=== PATIENT | female | born 1950 | race African-American/Black ===

== ENCOUNTER 2024-06-28 09:28 | Outpatient (CLI) | payer BC | END 2024-06-28 09:29 | disposition home or self-care (01) | LOC: SCSMRI 09:28 | PROVIDERS: ATTEND Psychiatry & Neurology Neurology | DX: R56.9 Unspecified convulsions (principal); G93.89 Other specified disorders of brain; R90.82 White matter disease, unspecified | CPT/HCPCS: 70551 ==

== ENCOUNTER 2024-07-20 16:26 | Inpatient (IN) | payer BC ==
[2024-07-20 17:03] VITALS: BMI 30.4
[2024-07-20] MEDS ORDERED: Acetaminophen 325 MG TAB PO PRN ×2 (17:30→19:00)
[2024-07-20] MEDS ORDERED: Ondansetron ODT 4 MG TAB SL PRN (17:30)
[2024-07-20] MEDS ORDERED: Ondansetron PF 4 MG/2 ML Vial IVP PRN (17:30)
[2024-07-20] MEDS ORDERED: Dextrose 50% Abboject 50 ML SYRINGE SLOW IVP PRN (19:00)
[2024-07-20] MEDS ORDERED: Dextrose 5% in Water 1,000 ML IV PRN (19:00)
[2024-07-20] MEDS ORDERED: Glucagon 1 MG/ML KIT IM PRN (19:00)
[2024-07-20] MEDS ORDERED: Ondansetron ODT 4 MG TAB PO PRN (19:00)
[2024-07-20] MEDS: metFORMIN 500 MG TAB PO SCH (20:37)
[2024-07-20] MEDS: Ramipril 5 MG CAP PO SCH (20:37)
[2024-07-20] MEDS: levETIRAcetam 500 MG TAB PO SCH (20:38)
[2024-07-20] MEDS: Atorvastatin Calcium 40 MG TAB PO SCH (20:38)
[2024-07-20] MEDS: Dexamethasone 4 mg/ml Vial SLOW IVP SCH (20:38)
[2024-07-20] MEDS: levETIRAcetam 500 MG TAB ONE (21:29)
[2024-07-21 04:52] LABS: Anion Gap 21 mmol/L (10-20); BUN (Urea Nitrogen) 13 mg/dL (9.8-20.1); Calc. Creatinine Clearance 82 mL/min (70-130); Calcium 9.6 mg/dL (7.8-10.44); Carbon Dioxide 19 mmol/L (23-31); Chloride 102 mmol/L (98-107); Estimated GFR 79; Glucose 179 mg/dL (83-110); Potassium 4.3 mmol/L (3.5-5.1); Sodium 138 mmol/L (136-145)
[2024-07-21 04:54] LABS: #Basophils Less than 0.03 10x3/uL (0.0-0.2); #Eosinophils Less than 0.03 10x3/uL (0.0-0.7); %Lymphocytes 7.8 % (21.0-51.0); %Monocytes 1.6 % (0.0-10.0); %Neutrophils 90.4 % (42.0-75.0); Hematocrit 38.3 % (36.0-47.0); Hemoglobin 12.9 g/dL (12.0-16.0); Mean Corpuscular HGB CONC 33.7 g/dL (32.0-36.0); Mean Corpuscular Hemoglobin 24.4 pg (27.0-31.0); Mean Corpuscular Volume 72.4 fL (78.0-98.0); Mean Platelet Volume 10.3 fL (7.4-10.4); Platelet Count 463 10x3/uL (130-400); RBC Distribution Width 13.8 % (11.5-14.5); Red Blood Cell (RBC) Count 5.29 mill/uL (4.20-5.40)
[2024-07-21] MEDS: Insulin Lispro 100 UNIT/ML 10 ML VIAL SC PRN (05:57)
[2024-07-21 07:05] LABS: Anisocytosis SLIGHT = 6-15 cells HPF (0-5); Microcytosis SLIGHT = 6-15 cells HPF (0-5); Platelet Adequacy Comment Platelets Normal
[2024-07-21] MEDS: Dexamethasone 4 mg/ml Vial SLOW IVP SCH (09:38)
[2024-07-21] MEDS: Pantoprazole 40 MG VIAL IVP SCH (09:38)
[2024-07-21] MEDS: Tamoxifen 10 MG TAB PO SCH (09:39)
[2024-07-21] MEDS: Indapamide 1.25 MG TAB PO SCH (10:17)
[2024-07-21] MEDS: INDAPAMIDE PO SCH (10:24)
[2024-07-22 05:14] LABS: Hematocrit 35.7 % (36.0-47.0); Hemoglobin 12.1 g/dL (12.0-16.0); Mean Corpuscular HGB CONC 33.9 g/dL (32.0-36.0); Mean Corpuscular Hemoglobin 24.2 pg (27.0-31.0); Mean Corpuscular Volume 71.3 fL (78.0-98.0); Mean Platelet Volume 9.8 fL (7.4-10.4); Platelet Count 494 10x3/uL (130-400); RBC Distribution Width 13.8 % (11.5-14.5); Red Blood Cell (RBC) Count 5.01 mill/uL (4.20-5.40)
[2024-07-22 05:42] LABS: Anion Gap 14 mmol/L (10-20); BUN (Urea Nitrogen) 22 mg/dL (9.8-20.1); Calc. Creatinine Clearance 79 mL/min (70-130); Calcium 8.7 mg/dL (7.8-10.44); Carbon Dioxide 24 mmol/L (23-31); Chloride 100 mmol/L (98-107); Estimated GFR 76; Glucose 225 mg/dL (83-110); Sodium 134 mmol/L (136-145)
[2024-07-22] MEDS: Insulin Lispro 100 UNIT/ML 10 ML VIAL SC PRN ×2 (12:34→20:23)
[2024-07-23] MEDS: Pantoprazole DR 40 MG TAB PO SCH (08:48)
[2024-07-23] MEDS: Dexamethasone 4 mg/ml Vial SLOW IVP SCH (15:06)
[2024-07-23] MEDS: Atorvastatin Calcium 20 MG TAB PO SCH (21:28)
[2024-07-23] MEDS: Insulin Lispro 100 UNIT/ML 10 ML VIAL SC PRN (22:13)
[2024-07-24 04:24] LABS: Hematocrit 34.1 % (36.0-47.0); Hemoglobin 11.3 g/dL (12.0-16.0); Mean Corpuscular HGB CONC 33.1 g/dL (32.0-36.0); Mean Corpuscular Hemoglobin 24.3 pg (27.0-31.0); Mean Corpuscular Volume 73.3 fL (78.0-98.0); Mean Platelet Volume 10.1 fL (7.4-10.4); Platelet Count 420 10x3/uL (130-400); RBC Distribution Width 13.7 % (11.5-14.5); Red Blood Cell (RBC) Count 4.65 mill/uL (4.20-5.40)
[2024-07-24 04:44] LABS: Anion Gap 12 mmol/L (10-20); BUN (Urea Nitrogen) 22 mg/dL (9.8-20.1); Calc. Creatinine Clearance 81 mL/min (70-130); Calcium 8.2 mg/dL (7.8-10.44); Carbon Dioxide 24 mmol/L (23-31); Chloride 99 mmol/L (98-107); Estimated GFR 78; Glucose 226 mg/dL (83-110); Hemoglobin A1c 7.1 % (4.0-6.0); Potassium 3.9 mmol/L (3.5-5.1); Sodium 131 mmol/L (136-145)
[2024-07-24] MEDS: Atorvastatin Calcium 20 MG TAB PO SCH (21:32)
[2024-07-25] MEDS: metFORMIN 500 MG TAB PO SCH (08:42)
[2024-07-25] MEDS: Dexamethasone 4 MG TAB PO SCH (08:42)
[2024-07-25 16:02] VITALS: BP 126/74; TEMP 99
[2024-08-01] MEDS ORDERED: Dexamethasone 4 MG TAB PO SCH (08:00)
== END 2024-07-25 18:37 | disposition home or self-care (01) | DRG 54 ==
LOC: 2SE 16:26 → OBSVTOIN 07-22 09:40
PROVIDERS: ADMIT Family Medicine; ATTEND Internal Medicine
DX: D32.0 Benign neoplasm of cerebral meninges (principal); G93.41 Metabolic encephalopathy; G93.6 Cerebral edema; E87.1 Hypo-osmolality and hyponatremia; E11.9 Type 2 diabetes mellitus without complications; G40.909 Epilepsy, unspecified, not intractable, without status epilepticus; I10 Essential (primary) hypertension; Z85.3 Personal history of malignant neoplasm of breast; Z92.3 Personal history of irradiation; Z91.014 Allergy to mammalian meats; Z79.84 Long term (current) use of oral hypoglycemic drugs
CPT/HCPCS: 0042T; 36415; 36416; 70450; 70551; 71045; 80048; 80053; 83036; 84484; 85025; 85027; 85610; 85730; 93005; 94760; 96374; 96375; 96376; G0378; J1100; J1815; J2470; J8540